=== PATIENT | male | born 1965 | race Caucasian/White ===

== ENCOUNTER 2018-03-04 01:20 | Emergency (ER) | payer MEDICAID, OTHER ==
[~2018-03-04] VITALS: Ht 172.7 cm; Wt 73.0 kg
[2018-03-04 01:22] VITALS: BP 125/82
[2018-03-06] MEDS ORDERED: GABA300C PO (19:53)
[2018-03-06] MEDS ORDERED: PHEN50TA PO (19:53)
[2018-03-06] MEDS ORDERED: PARO30TA45 PO (19:53)
== END 2018-03-04 02:11 | disposition home or self-care (01) ==
LOC: ED 01:45
DX: R33.9 Retention of urine, unspecified (principal); N41.0 Acute prostatitis
CPT/HCPCS: 99281

== ENCOUNTER 2018-05-09 22:09 | Emergency (ER) | payer MEDICAID ==
[~2018-05-09] VITALS: Ht 177.8 cm; Wt 80.0 kg
[~2018-05-09 22:09] MED LIST: GABA300C PO; PARO30TA45 PO; PHEN50TA PO
[2018-05-09] MEDS ORDERED: ONDANSETRON ODT 4 MG PO ONE (22:30)
[2018-05-09] MEDS ORDERED: IBUPROFEN 200 MG TABLET PO ONE (22:30)
[2018-05-09] MEDS ORDERED: IBUPROFEN 200 MG TABLET ONE (22:46)
[2018-05-09] MEDS ORDERED: ONDANSETRON ODT 4 MG ONE (22:46)
[2018-05-09 23:40] VITALS: BP 122/84
== END 2018-05-09 23:42 | disposition home or self-care (01) ==
LOC: ED 23:19
DX: S06.0X0A Concussion without loss of consciousness, initial encounter (principal); S00.81XA Abrasion of other part of head, initial encounter; R07.89 Other chest pain; M54.2 Cervicalgia; M25.511 Pain in right shoulder; F17.200 Nicotine dependence, unspecified, uncomplicated; Y04.8XXA Assault by other bodily force, initial encounter; Y93.89 Activity, other specified; Y92.410 Unspecified street and highway as the place of occurrence of the external cause; Y99.8 Other external cause status
CPT/HCPCS: 70450; 70486; 71101; 72125; 73030; 99284; Q0162